=== PATIENT | female | born 1990 | race Caucasian/White ===

== ENCOUNTER 2019-08-14 23:10 | Inpatient (IN) ==
[2019-08-14 13:31] LABS: Bilirubin,Urine Negative (Negative); Blood,Urine Negative (Negative); Clarity,Urine Cloudy (Clear); Color,Urine Yellow (Yellow); Glucose,Urine (UA) Normal (Normal); Ketones,Urine Negative (Negative); Leukocyte Esterase,Urine Moderate (Negative); Nitrite,Urine Negative (Negative); PH,Urine 6.5 pH Units (5.0-8.0); Protein,Urine Negative (Neg-Trace); Specific Gravity,Urine 1.006 (1.010-1.025); Urobilinogen,Urine Normal (Normal)
[2019-08-14 13:32] LABS: Bacteria,Urine Moderate per hpf (None-Few); Hyaline Casts,Urine None Seen per lpf (None-Few); RBC,Urine 0-3 per hpf (0-3); Squamous Epithelial Cell,Urine Moderate per lpf (None-Few); WBC,Urine 15-30 per hpf (0-3)
[2019-08-14 18:34] LABS: Basophils # 0.1 K/mcL (0.0-0.2); Basophils % 0.6 %; Eosinophils % 0.2 %; Hematocrit 34.4 % (35.3-44.9); Hemoglobin 11.3 g/dL (11.5-15.4); Immature Granulocytes % 0.5 % (0-4); Lymphocytes # 1.5 K/mcL (0.6-4.6); Lymphocytes % 14.7 %; Mean Corpuscular HGB Conc 32.8 g/dL (31.6-35.5); Mean Corpuscular Hemoglobin 27.3 pg (28.0-33.3); Mean Platelet Volume 11.4 fL (9.4-12.4); Monocytes # 0.5 K/mcL (0.0-1.3); Monocytes % 4.7 %; Platelet Count 168 K/mcL (140-400); Red Blood Count 4.14 M/mcL (3.82-4.97); Red Cell Distribution Width 12.1 % (11.5-14.5); Segmented Neutrophils % 79.3 %; White Blood Count 10.1 K/mcL (4.3-11.1)
[2019-08-14 18:38] LABS: Mean Corpuscular Volume 83.1 fL (83.0-100.0)
[~2019-08-14 23:10] MED LIST: *HR* FentaNYL (PF) 250 MCG/5 ML VIAL ONE; *HR* HYDROMORPHONE 2 MG/ML VIAL ONE; *HR* HYDROmorphone 20 MG/20 ML PCA IVC PRN; *HR* Midazolam HCl 2 MG/2 ML VIAL ONE; *HR* Oxytocin 10 UNIT/ML VIAL IM ONE; Acetaminophen IV 1,000 MG/100 ML INFUS..BTL ONE; Betamethasone Acet/SodPhos 30 MG/5 ML VIAL IM SCH; Bupivacaine-MPF 0.25% 10 ML VIAL ONE; Dexamethasone 4 MG/ML VIAL ONE; Ketorolac 30 MG/ML VIAL ONE; Magnesium Sulf 20 gm/SW 500mL 20 GM/500 ML IV.SOLN IVC SCH; Metoclopramide 10 MG/2 ML VIAL IVP PRN; Ondansetron 4 MG/2 ML VIAL IVP PRN; Ondansetron 4 MG/2 ML VIAL ONE; Oxytocin 20 units/ LR 1000 mL 20 UNIT/1,000 ML BAG IVC SCH; Rho Immune Globulin 1,500 UNIT SYRINGE IM ONE; Ringers Solution, Lactated 1,000 ML IVC ONE; Ringers Solution, Lactated 1,000 ML IVC SCH; Ringers Solution, Lactated 1,000 ML ONE; Sennosides 8.6 MG TABLET PO PRN
[2019-08-15] MEDS: ceFAZolin 1,000 MG in Water for inj. (sterile) 10 ML IVP SCH ×3 (00:03→17:06)
[2019-08-15] MEDS: Ibuprofen 600 MG TABLET PO PRN ×3 (00:32→16:47)
[2019-08-15 05:16] LABS: Basophils % 0.1 %; Hematocrit 32.7 % (35.3-44.9); Hemoglobin 10.7 g/dL (11.5-15.4); Immature Granulocytes % 0.5 % (0-4); Lymphocytes # 0.8 K/mcL (0.6-4.6); Lymphocytes % 4.5 %; Mean Corpuscular HGB Conc 32.7 g/dL (31.6-35.5); Mean Corpuscular Hemoglobin 27.4 pg (28.0-33.3); Mean Corpuscular Volume 83.6 fL (83.0-100.0); Mean Platelet Volume 11.4 fL (9.4-12.4); Platelet Count 178 K/mcL (140-400); Red Blood Count 3.91 M/mcL (3.82-4.97); Segmented Neutrophils % 92.9 %
[2019-08-15 05:21] LABS: Monocytes # 0.4 K/mcL (0.0-1.3); Neutrophils # 16.1 K/mcL (1.6-8.9); White Blood Count 17.3 K/mcL (4.3-11.1)
[2019-08-15] MEDS: Prenatal Vit/FA 1 EACH TABLET PO SCH (07:51)
[2019-08-15] MEDS: *HR* OxyCODONE/APAP 5/325 TABLET PO PRN ×2 (13:17→19:01)
[2019-08-15] MEDS: Simethicone 80 MG TAB.CHEW PO PRN (20:02)
[2019-08-16] MEDS: *HR* OxyCODONE/APAP 5/325 TABLET PO PRN ×3 (01:08→11:06)
[2019-08-16] MEDS: Ibuprofen 600 MG TABLET PO PRN ×2 (01:08→08:48)
[2019-08-16] MEDS: Simethicone 80 MG TAB.CHEW PO PRN (05:13)
[2019-08-16 08:03] VITALS: BP 119/73
[2019-08-16] MEDS: Prenatal Vit/FA 1 EACH TABLET PO SCH (08:48)
== END 2019-08-16 14:09 | disposition home or self-care (01) ==
LOC: 1NENULAB → 1NENUOBS 08-15 01:13
PROVIDERS: ADMIT Obstetrics & Gynecology; ATTEND Obstetrics & Gynecology

== ENCOUNTER 2020-07-10 13:13 | Observation (INO) ==
[2020-07-10] MEDS ORDERED: *HR* Heparin 5,000 UNIT/ML VIAL IVP ONE (14:09)
[2020-07-10] MEDS ORDERED: *HR* Heparin 5,000 UNIT/ML VIAL IVP PRN ×2 (14:09)
[2020-07-10] MEDS ORDERED: Heparin 25,000UNIT/250ML 1/2NS 25,000 UNIT/250 ML IV.SOLN IVC SCH (14:15)
[2020-07-10 14:19] LABS: Basophils # 0.1 K/mcL (0.0-0.2); Basophils % 1.1 %; Eosinophils # 0.1 K/mcL (0.0-0.6); Hematocrit 47.2 % (35.3-44.9); Hemoglobin 15.6 g/dL (11.5-15.4); Immature Granulocytes % 0.1 % (0-4); Lymphocytes # 2.9 K/mcL (0.6-4.6); Lymphocytes % 40.6 %; Mean Corpuscular HGB Conc 33.1 g/dL (31.6-35.5); Mean Corpuscular Hemoglobin 29.2 pg (28.0-33.3); Mean Corpuscular Volume 88.4 fL (83.0-100.0); Mean Platelet Volume 10.5 fL (9.4-12.4); Monocytes # 0.5 K/mcL (0.0-1.3); Monocytes % 6.8 %; Neutrophils # 3.6 K/mcL (1.6-8.9); Platelet Count 267 K/mcL (140-400); Red Blood Count 5.34 M/mcL (3.82-4.97); Red Cell Distribution Width 12.9 % (11.5-14.5); Segmented Neutrophils % 50.4 %; White Blood Count 7.2 K/mcL (4.3-11.1)
[2020-07-10 14:27] LABS: Heparin anti-factor XA UFH < 0.04 IU/mL (0.30-0.70); INR 1.1; Prothrombin Time 12.4 Seconds (9.4-12.1)
[2020-07-10 14:30] LABS: Activated Partial Thrombo Time 32.4 Seconds (26.0-36.0)
[2020-07-10 14:43] LABS: BUN/Creatinine Ratio 14 (6-26); Blood Urea Nitrogen 12 mg/dL (6-20); Calcium 9.9 mg/dL (8.6-10.3); Carbon Dioxide 27 mEq/L (23-29); Chloride 101 mEq/L (98-107); Glucose 94 mg/dL (70-105); Osmolality,Calculated 286 (280-300); Potassium 3.7 mEq/L (3.5-5.1); Sodium 138 mEq/L (136-145); eGFR For African Americans > 60 (> 60); eGFR For Non-African Americans > 60 (> 60)
[2020-07-10] MEDS ORDERED: Naloxone 0.4 MG/ML INJ IVP PRN (15:31)
[2020-07-10] MEDS ORDERED: Isovue-370 500 ML BOTTLE IVP ONE (16:39)
[2020-07-10] MEDS ORDERED: Acetaminophen 325 MG TABLET PO PRN (18:13)
[2020-07-10] MEDS ORDERED: SUMAtriptan succinate 50 MG TABLET PO PRN (18:16)
[2020-07-11 02:15] LABS: Basophils # 0.1 K/mcL (0.0-0.2); Basophils % 1.1 %; Eosinophils # 0.1 K/mcL (0.0-0.6); Eosinophils % 1.2 %; Hematocrit 42.9 % (35.3-44.9); Hemoglobin 14.3 g/dL (11.5-15.4); Immature Granulocytes % 0.1 % (0-4); Lymphocytes # 3.5 K/mcL (0.6-4.6); Mean Corpuscular HGB Conc 33.3 g/dL (31.6-35.5); Mean Corpuscular Hemoglobin 28.9 pg (28.0-33.3); Mean Corpuscular Volume 86.7 fL (83.0-100.0); Mean Platelet Volume 10.1 fL (9.4-12.4); Monocytes # 0.5 K/mcL (0.0-1.3); Monocytes % 6.9 %; Platelet Count 227 K/mcL (140-400); Red Blood Count 4.95 M/mcL (3.82-4.97); Segmented Neutrophils % 41.7 %; White Blood Count 7.2 K/mcL (4.3-11.1)
[2020-07-11 02:32] LABS: BUN/Creatinine Ratio 13 (6-26); Blood Urea Nitrogen 11 mg/dL (6-20); Calcium 9.3 mg/dL (8.6-10.3); Carbon Dioxide 28 mEq/L (23-29); Chloride 102 mEq/L (98-107); Chol/HDL Ratio 2.6 (0-4.9); Cholesterol 190 mg/dL (< 200); Glucose 87 mg/dL (70-105); HDL Cholesterol 74 mg/dL (40-59); LDL Cholesterol,Calculated 104 mg/dL (< 100); Osmolality,Calculated 283 (280-300); Potassium 3.7 mEq/L (3.5-5.1); Sodium 137 mEq/L (136-145); Triglycerides 62 mg/dL (< 150); eGFR For African Americans > 60 (> 60); eGFR For Non-African Americans > 60 (> 60)
[2020-07-11 07:17] VITALS: BP 104/68
[2020-07-11] MEDS ORDERED: Multivit/Ca/Min/Fe/FA 1 TAB TABLET PO SCH (09:00)
[2020-07-11] MEDS ORDERED: *HR* Rivaroxaban 15 MG TABLET PO SCH (09:30)
== END 2020-07-11 10:31 | disposition home or self-care (01) ==
LOC: 2NNU 13:13 → EMEROOARM 13:13 → 2NNU 16:37
PROVIDERS: ADMIT Internal Medicine; ATTEND Internal Medicine